=== PATIENT | male | born 1995 | race Caucasian/White ===

== ENCOUNTER 2018-01-06 21:09 | Emergency (ER) | payer BC, OTHER ==
[2018-01-06] MEDS ORDERED: Hydrocortisone/Neomycin/Polymyxin B Ophth Susp 7.5 ML Bottle ONE (22:14)
--- NOTE | 2018-01-06 22:41 | ER ---
DATE SEEN: 01/06/2018 REASON FOR VISIT: Foreign body of the eye. 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 Complains of foreign body sensation and redness, but no visual disturbance. ALLERGIES: Cephalexin. REVIEW OF SYSTEMS: No headache, nausea, or vomiting. PHYSICAL EXAMINATION: GENERAL: He is not in distress. He is afebrile and normotensive. EYES: Visual acuity is 20/20. Eyes, mild conjunctival redness in the left. There is a tiny 1 mm sized foreign body imbedded in the cornea. IMPRESSION: Corneal foreign body. PLAN: I used tetracaine for analgesia and then was able to grind the foreign body away with no complications. Follow up. Cortisporin drops to the left eye for 3 days and return as needed. TIME SEEN: 2200 hours. /[id number] KARON/GRISELDAL
[2018-01-07 02:28] VITALS: BP 145/95
== END 2018-01-06 22:25 | disposition home or self-care (01) ==
LOC: FB.ED 21:09
DX: T15.02XA Foreign body in cornea, left eye, initial encounter (principal); Z88.1 Allergy status to other antibiotic agents
CPT/HCPCS: 99283; A9270